=== PATIENT | male | born 1950 | race Caucasian/White ===

== ENCOUNTER 2020-01-10 10:20 | Emergency (ER) | payer MEDICARE, OTHER ==
[~2020-01-10] VITALS: Ht 177.8 cm; Wt 106.6 kg
[~2020-01-10 10:20] MED LIST: LAMO25CH; RIBA200C38; ZOLP-158
[2020-01-10] MEDS ORDERED: KETOROLAC TROMETH 30 MG/ML 1ML VIAL IV ONE (12:15)
[2020-01-10 13:37] VITALS: BP 141/68
== END 2020-01-10 14:00 | disposition home or self-care (01) ==
LOC: ER 10:20
DX: M10.9 Gout, unspecified (principal); M25.561 Pain in right knee; I10 Essential (primary) hypertension
CPT/HCPCS: 73562; 93005; 96374; 99283; J1885